=== PATIENT | female | born 1965 | race Two or more races ===

== ENCOUNTER 2020-08-24 10:55 | Day surgery (SDC) | payer OTHER | END 2020-08-24 18:50 | disposition home or self-care (01) | LOC: CIR.AMB 10:55 | PROVIDERS: ATTEND Obstetrics & Gynecology | DX: N84.0 Polyp of corpus uteri (principal); Z20.822 Contact with and (suspected) exposure to COVID-19 ==

== ENCOUNTER → 2020-10-20 | Emergency (ER) | payer OTHER ==
[~2020-10-20] VITALS: Ht 170.2 cm; Wt 69.9 kg
[~2020-10-20] MED LIST: KETO10TA2 PO; NORFLEX100MG PO
== END | disposition home or self-care (01) ==
LOC: ER 12:47
DX: M54.5 Low back pain (principal)